=== PATIENT | female | born 1995 | race Caucasian/White ===

== ENCOUNTER 2016-07-22 17:46 | Emergency (ER) | payer OTHER ==
--- NOTE | 2016-07-22 19:20 | ER Document Report ---
ED Medical Screen (RME) - General Chief Complaint: Dizziness Stated Complaint: LIGHT HEAD FEELING Notes: 20 yo female c/o persistant dizziness, lightheadedness x 2 weeks. Seen in ED for same. Reports dizziness has gotten progessively worse since that visit. Feels slightly short of breath. Intermittant shooting pain. Hx/o costochondritis and the chest pain feels familar to that. Had recent cold, but is mostly over those symptoms. no fever. Pt is 8wks . . TRAVEL OUTSIDE OF THE [place] IN LAST 30 DAYS: No - Related Data Allergies/Adverse Reactions: No Known Allergies Allergy (Verified 07/22/16 18:39) Past Medical History - Social History Chew tobacco use (# tins/day): No Frequency of alcohol use: None Drug Abuse: None Physical Exam - Vital signs Vitals: Temp Pulse Resp BP Pulse Ox 97.9 F 76 16 145/72 H 97 07/22/16 18:43 07/22/16 18:43 07/22/16 18:43 07/22/16 18:43 07/22/16 18:43 Course - Vital Signs Vital signs: Temp Pulse Resp BP Pulse Ox 97.9 F 76 16 145/72 H 97 07/22/16 18:43 07/22/16 18:43 07/22/16 18:43 07/22/16 18:43 07/22/16 18:43
[2016-07-22 19:46] LABS: ABSOLUTE BASOPHILS # (AUTO) 0.1 10^3/uL (0.0-0.2); ABSOLUTE EOSINOPHILS # (AUTO) 0.1 10^3/uL (0.0-0.6); ABSOLUTE LYMPHOCYTES (AUTO) 2.2 10^3/uL (0.5-4.7); ABSOLUTE MONOCYTES (AUTO) 0.6 10^3/uL (0.1-1.4); ABSOLUTE NEUT (AUTO) 5.2 10^3/uL (1.7-8.2); BASOPHILS % (AUTO) 0.7 % (0-2); EOSINOPHILS % (AUTO) 1.1 % (0-6); HEMATOCRIT 40.1 % (36.0-47.0); HEMOGLOBIN 13.5 g/dL (12.0-15.5); HGB HCT DIFFERENCE 0.4; MEAN CORPUSCULAR HEMOGLOBIN 27.7 pg (27.0-33.4); MEAN CORPUSCULAR HGB CONC 33.6 g/dL (32.0-36.0); MEAN CORPUSCULAR VOLUME 82 fl (80-97); MONOCYTES % (AUTO) 7.7 % (3-13); RED BLOOD COUNT 4.87 10^6/uL (3.72-5.28); SEGMENTED NEUTROPHILS % (AUTO) 63.5 % (42-78); WHITE BLOOD COUNT 8.2 10^3/uL (4.0-10.5)
[2016-07-22 19:53] LABS: APPEARANCE,URINE CLEAR; BILIRUBIN,URINE NEGATIVE (NEGATIVE); GLUCOSE, URINE NEGATIVE (NEGATIVE); KETONES,URINE NEGATIVE (NEGATIVE); LEUKOCYTE ESTERASE,URINE NEGATIVE (NEGATIVE); NITRITE,URINE NEGATIVE (NEGATIVE); PROTEIN,URINE NEGATIVE (NEGATIVE); URINE SPECIFIC GRAVITY 1.016; UROBILINOGEN,URINE NEGATIVE mg/dL (<2.0)
[2016-07-22 20:04] LABS: ALANINE AMINOTRANSFERASE 92 U/L (5-35); ALBUMIN 4.9 g/dL (3.7-5.6); ALKALINE PHOSPHATASE 85 U/L (50-135); ANION GAP 12 (5-19); ASPARTATE AMINO TRANSFERASE 41 U/L (5-30); BILIRUBIN,TOTAL 0.5 mg/dL (0.2-1.3); BLOOD UREA NITROGEN 16 mg/dL (7-20); CALCIUM 10.2 mg/dL (8.4-10.2); CARBON DIOXIDE 28 mmol/L (22-30); CHLORIDE 101 mmol/L (98-107); CREATININE RESULT 0.62 mg/dL (0.52-1.25); GLUCOSE 83 mg/dL (75-110); POTASSIUM 4.6 mmol/L (3.6-5.0); SODIUM 141.4 mmol/L (137-145); TOTAL PROTEIN 7.9 g/dL (6.3-8.2)
--- NOTE | 2016-07-22 23:30 | ER Document Report ---
ED Dizziness/Weakness <MICHELLE VIERA - Last Filed: 07/23/16 00:24> - General Time seen by provider: 23:20 Mode of Arrival: Ambulatory Information source: Patient TRAVEL OUTSIDE OF THE [place] IN LAST 30 DAYS: No - HPI Onset: Other - see HPI Onset/Duration: Persistent Associated symptoms: Dizzy <EUNICE TRAN - Last Filed: 07/23/16 00:56> - General Chief Complaint: Dizziness Stated Complaint: LIGHT HEAD FEELING Notes: Patient is a 20 year old female presenting to the emergency department with complaints of dizziness. Patient has been having this symptom for 2 weeks now but states that the dizziness has gotten worse. Patient was seen and evaluated in the ED for this on 07/14. Patient also had shortness of breath, chest pain, and some left leg pain at this time as well. Patient states that her dizziness now is all the time whereas before it was only while she was standing. Patient states she feels like the room is moving when she is laying still. Patient had some dizziness, hypertension, and anemia while she was before. Patient also had proteinuria on 07/14 but does not have any proteinuria today. Patient states she takes iron supplements. Patient's PCP is [facility]. Patient has no known allergies. (EUNICE TRAN) - Related Data Allergies/Adverse Reactions: No Known Allergies Allergy (Verified 07/22/16 18:39) Past Medical History - General Information source: Patient - Social History Smoking Status: Never Smoker Chew tobacco use (# tins/day): No Frequency of alcohol use: None Drug Abuse: None Family History: None Patient has suicidal ideation: No Patient has homicidal ideation: No <EUNICE TRAN - Last Filed: 07/23/16 00:56> Review of Systems - Review of Systems Constitutional: No symptoms reported EENT: No symptoms reported Cardiovascular: See HPI, Dizziness Respiratory: No symptoms reported Gastrointestinal: No symptoms reported Genitourinary: No symptoms reported Female Genitourinary: No symptoms reported Musculoskeletal: No symptoms reported Skin: No symptoms reported Hematologic/Lymphatic: No symptoms reported Neurological/Psychological: No symptoms reported -: Yes All other systems reviewed and negative <EUNICE TRAN - Last Filed: 07/23/16 00:56> Physical Exam <MICHELLE VIERA - Last Filed: 07/23/16 00:24> - Vital signs Interpretation: Normal - General General appearance: Appears well, Alert In distress: None - HEENT Head: Normocephalic, Atraumatic Eyes: Normal Conjunctiva: Normal Cornea: Normal Extraocular movements intact: Yes - no nystagmus Pupils: PERRL Mucous membranes: Normal - Respiratory Respiratory status: No respiratory distress Chest status: Nontender Breath sounds: Normal Chest palpation: Normal - Cardiovascular Rhythm: Regular Heart sounds: Normal auscultation - Abdominal Inspection: Normal Distension: No distension Bowel sounds: Normal Tenderness: Nontender Organomegaly: No organomegaly - Back Back: Normal, Nontender - Extremities General upper extremity: Normal inspection, Normal ROM, Normal strength General lower extremity: Normal inspection, Normal ROM, Normal strength - Neurological Neuro grossly intact: Yes Cognition: Normal Orientation: AAOx4 [place] Coma Scale Eye Opening: Spontaneous [place] Coma Scale Verbal: Oriented [place] Coma Scale Motor: Obeys Commands [place] Coma Scale Total: 15 Speech: Normal - Psychological Associated symptoms: Normal affect, Normal mood - Skin Skin Temperature: Warm Skin Moisture: Dry <EUNICE TRAN - Last Filed: 07/23/16 00:56> - Vital signs Vitals: Temp Pulse Resp BP Pulse Ox 97.9 F 76 16 145/72 H 97 07/22/16 18:43 07/22/16 18:43 07/22/16 18:43 07/22/16 18:43 07/22/16 18:43 (MICHELLE VIERA) (EUNICE TRAN) - HEENT Notes: Patient's extraocular movements were checked initially and there was no nystagmus; patient's extraocular movements were re-checked after rapid head movements in all directions resulting with no nystagmus. (EUNICE TRAN) Course - Laboratory Result Diagrams: 07/22/16 19:25 07/22/16 19:25 - Diagnostic Test Radiology reviewed: Reports reviewed - CT scan was unremarkable <MICHELLE VIERA - Last Filed: 07/23/16 00:24> - Laboratory Result Diagrams: 07/22/16 19:25 07/22/16 19:25 <EUNICE TRAN - Last Filed: 07/23/16 00:56> - Re-evaluation Re-evalutation: 07/23/16 00:24 The patient claims to have this severe dizziness, however there is no nystagmus found on exam. Despite going through rapid head movements to provoke dizziness , there is no nystagmus and she does not comment on her dizziness being worse. ( MICHELLE VIERA) - Vital Signs Vital signs: Temp Pulse Resp BP Pulse Ox 97.8 F 80 16 119/64 99 07/23/16 00:37 07/23/16 00:37 07/22/16 18:43 07/23/16 00:37 07/23/16 00:37 (MICHELLE VIERA) (EUNICE TRAN) - Laboratory Laboratory results interpreted by me: 07/22/16 07/22/16 19:25 19:25 RDW 15.0 H AST 41 H ALT 92 H (MICHELLE VIERA) (EUNICE TRAN) Scribe Documentation - Scribe Written by Scribe:: Eunice Tran (07/23/16 23:30) acting as scribe for :: Zana <EUNICE TRAN - Last Filed: 07/23/16 00:56>
[2016-07-23 00:39] VITALS: BP 119/64
== END 2016-07-23 00:45 | disposition home or self-care (01) ==
LOC: ER 17:46
DX: R42 Dizziness and giddiness (principal); I10 Essential (primary) hypertension
CPT/HCPCS: 36415; 70450; 80053; 81001; 85025; 99284

== ENCOUNTER 2018-01-17 15:56 | Outpatient (CLI) | payer OTHER ==
[2018-01-17] MEDS ORDERED: ACETAMINOPHEN 325 MG TABLET PO PRN (16:28)
[2018-01-17] MEDS ORDERED: BUTALB/ACETAMINOPHEN/CAFFEINE 1 TAB EACH PO ONE (16:34)
[2018-01-17 16:49] LABS: AMORPHOUS SEDIMENT,URINE TRACE /HPF; APPEARANCE,URINE SLIGHTLY-CLOUDY; BILIRUBIN,URINE NEGATIVE (NEGATIVE); COLOR,URINE YELLOW; GLUCOSE, URINE NEGATIVE (NEGATIVE); KETONES,URINE NEGATIVE (NEGATIVE); LEUKOCYTE ESTERASE,URINE SMALL (NEGATIVE); NITRITE,URINE NEGATIVE (NEGATIVE); PROTEIN,URINE NEGATIVE (NEGATIVE); URINE SPECIFIC GRAVITY 1.008; UROBILINOGEN,URINE NEGATIVE mg/dL (<2.0)
[2018-01-17 17:07] LABS: ABSOLUTE EOSINOPHILS # (AUTO) 0.1 10^3/uL (0.0-0.6); ABSOLUTE LYMPHOCYTES (AUTO) 1.9 10^3/uL (0.5-4.7); ABSOLUTE MONOCYTES (AUTO) 0.9 10^3/uL (0.1-1.4); ABSOLUTE NEUT (AUTO) 6.1 10^3/uL (1.7-8.2); BASOPHILS % (AUTO) 0.5 % (0-2); EOSINOPHILS % (AUTO) 1.3 % (0-6); HEMATOCRIT 31.4 % (36.0-47.0); HEMOGLOBIN 10.7 g/dL (12.0-15.5); LYMPHOCYTES % (AUTO) 21.4 % (13-45); MEAN CORPUSCULAR HEMOGLOBIN 28.5 pg (27.0-33.4); MEAN CORPUSCULAR HGB CONC 33.9 g/dL (32.0-36.0); MEAN CORPUSCULAR VOLUME 84 fl (80-97); MONOCYTES % (AUTO) 10.4 % (3-13); PLATELET COUNT 314 10^3/uL (150-450); RED BLOOD COUNT 3.74 10^6/uL (3.72-5.28); RED CELL DISTRIBUTION WIDTH 15.5 % (11.5-14.0); SEGMENTED NEUTROPHILS % (AUTO) 66.4 % (42-78); TOTAL CELLS COUNTED % (AUTO) 100 %; WHITE BLOOD COUNT 9.1 10^3/uL (4.0-10.5)
[2018-01-17 17:07] LABS: URINE AMPHETAMINES SCREEN NEGATIVE; URINE BARBITURATES SCREEN NEGATIVE; URINE BENZODIAZEPINES SCREEN NEGATIVE; URINE COCAINE SCREEN NEGATIVE; URINE MARIJUANA (THC) SCREEN NEGATIVE; URINE METHADONE SCREEN NEGATIVE; URINE PHENCYCLIDINE SCREEN NEGATIVE
[2018-01-17 17:12] LABS: UR PRO/CREAT RATIO RESULT 0.3 mg/mg (0.0-0.2); URINE CREATININE 46.2 mg/dL (16-327); URINE PROTEIN 15.8 mg/dL (<12)
[2018-01-17 17:21] LABS: ALANINE AMINOTRANSFERASE 18 U/L (9-52); ALBUMIN 3.6 g/dL (3.5-5.0); ALKALINE PHOSPHATASE 92 U/L (38-126); ANION GAP 11 (5-19); ASPARTATE AMINO TRANSFERASE 12 U/L (14-36); BILIRUBIN,DIRECT 0.3 mg/dL (0.0-0.4); BILIRUBIN,TOTAL 0.3 mg/dL (0.2-1.3); BLOOD UREA NITROGEN 5 mg/dL (7-20); CALCIUM 9.2 mg/dL (8.4-10.2); CARBON DIOXIDE 22 mmol/L (22-30); CHLORIDE 107 mmol/L (98-107); GLUCOSE 70 mg/dL (75-110); LDH 378 U/L (313-618); POTASSIUM 4.1 mmol/L (3.6-5.0); TOTAL PROTEIN 6.6 g/dL (6.3-8.2); URIC ACID 3.2 mg/dL (2.5-6.2)
--- NOTE | 2018-01-17 18:16 | Non Stress Test Report ---
Non Stress Test Datetime Report Generated by CPN: 01/17/2018 18:16 DEMOGRAPHIC EGA NST: 33.2 INDICATION Indication for Study: Ordered by Provider MONITORING Monitor Explained: Monitor Explained; Test Explained; Patient Verbalized Understanding Monitor Explained Other: see flowsheet for vital signs Time on Monitor: 01/17/2018 16:49 Time off Monitor: 01/17/2018 17:51 NST Duration: 62 NST INTERVENTIONS NST Interventions: Reposition Patient Physician Notified NST: CFany Dai, CNM BABY A: [id number] BABY A Movement : Present Contraction Frequency : none FHR Baseline : 135 Accelerations : 15X15 Decelerations : None Variability : Moderate 6-25bpm NST Review: Meets Criteria for Reactive NST NST Review and Verified By : ADELITA Del Toro Results: Reactive NST COMMENTS NST Comments: strip reviewed by CNM NST REPORT Report Trigger: Send Report
== END 2018-01-17 18:05 | disposition home or self-care (01) ==
LOC: LC 15:56
PROVIDERS: ATTEND Student in an Organized Health Care Education/Training Program
PROC: 4A1HXCZ Monitoring of Products of Conception, Cardiac Rate, External Approach (ICD-10-PCS; principal; 2018-01-17)
DX: O26.893 Other specified pregnancy related conditions, third trimester (principal); R51 Headache; Z3A.33 33 weeks gestation of pregnancy
CPT/HCPCS: 36415; 59025; 80053; 80307; 81001; 82570; 83615; 84156; 84550; 85025

== ENCOUNTER → 2018-01-21 | Outpatient (CLI) | payer OTHER ==
[2018-01-21 17:42] LABS: URINE PROTEIN 8.3 mg/dL (<12)
[2018-01-21 17:46] LABS: 24 HOUR URINE PROTEIN RESULT 123 mg/day (42-225)
== END ==
LOC: OD 16:05
PROVIDERS: ATTEND Midwife
DX: O13.9 Gestational [pregnancy-induced] hypertension without significant proteinuria, unspecified trimester (principal); Z13.29 Encounter for screening for other suspected endocrine disorder
CPT/HCPCS: 36415; 84156; 84443

== ENCOUNTER 2018-03-05 04:46 | Inpatient (IN) | payer OTHER ==
[2018-03-05] MEDS ORDERED: MISOPROSTOL 0.2 MG TABLET ONE (05:51)
[2018-03-05] MEDS ORDERED: OXYTOCIN/NORMAL SALINE 20 UNIT/1,000 ML RTUINJ ONE (05:51)
[2018-03-05] MEDS ORDERED: LIDOCAINE 1% INJ-PF (10 MG/ML) 30 ML SDV ONE (05:51)
[2018-03-05 06:28] LABS: APPEARANCE,URINE SLIGHTLY-CLOUDY; BILIRUBIN,URINE NEGATIVE (NEGATIVE); COLOR,URINE YELLOW; GLUCOSE, URINE NEGATIVE (NEGATIVE); KETONES,URINE 20 mg/dL (NEGATIVE); LEUKOCYTE ESTERASE,URINE NEGATIVE (NEGATIVE); NITRITE,URINE NEGATIVE (NEGATIVE); PROTEIN,URINE 30 mg/dL (NEGATIVE); URINE SPECIFIC GRAVITY 1.023; UROBILINOGEN,URINE NEGATIVE mg/dL (<2.0)
--- NOTE | 2018-03-05 06:47 | Admission Physical ---
Datetime Report Generated by CPN: 03/05/2018 06:47 CURRENT ADMISSION Chief Complaint: Uterine Contractions Indication for Induction: Not Applicable Admit Impression : Term, Intrauterine ; Active Labor Admit Plan: Admit to Unit; Initiate Labor Protocol ALLERGIES Medication Allergies: No Medication Allergies: No Known Allergies (01/17/2018) Latex: No Latex Allergies OBSTETRICAL HISTORY EDC: 03/05/2018 00:00 : 2 Para: 1 Term: 1 : 0 SAB: 0 IAB: 0 Livin Gestational Diabetes: No Rh Sensitization: No Incompetent Cervix: No MARBIN: No Infertility: No ART Treatment: No Uterine Anomaly: No IUGR: No Hx Previous C/S: No Macrosomia: No Hx Loss/Stillborn: No PIH: No Hx : No Placenta Previa/Abruption: No Depression/PP Depression: No PTL/PROM: No Post Hemorrhage: No Current Procedures: Ultrasound; NST Obstetrical History Comments: G1: 39 weeks pre-e G2:current SEE RECORDS Alcohol: No Marijuana : No Cocaine: No Other Illicit Drugs: No Cigarettes: Never Smoker. [id number] MEDICAL HISTORY Diabetes: No Blood Transfusion: No Pulmonary Disease (Asthma, TB): No Breast Disease: No Hypertension: No Advanced Manufacturing Associate Surgery: No Heart Disease: No Hosp/Surgery: Yes Autoimmune Disorder: No Anesthetic Complications: Yes Kidney Disease: No Abnormal Pap Smear: No Neuro/Epilepsy: No Psychiatric Disorders: No Other Medical Diseases: No Hepatitis/Liver Disease: No Significant Family History: No Varicosities/Phlebitis: No Trauma/Violence : No Thyroid Dysfunction: No Medical History Comments: epidural MEI after 1st delivery with blood patch INFECTIOUS HISTORY Gonorrhea: No Genital Herpes: No Chlamydia: No Tuberculosis: No Syphilis: No Hepatitis: No HIV/AIDS Exposure: No Rash or Viral Illness: No HPV: No PHYSICAL EXAM General: Normal HEENT: Normal Neurologic: Normal Thyroid: Normal Heart: Normal Lungs: Normal Breast: Normal Back: Normal Abdomen: Normal Genitourinary Exam: Normal Extremities: Normal DTRs: Normal Pelvic Type: Adequate Vital Signs: Reviewed VAGINAL EXAM Dilatation: 5 Effacement: 50 Station: -2 MEMBRANES Pooling: Negative Membranes: Intact FETUS A EGA: 40.0 Monitoring: External US FHR- Baseline: 140 Variability: Moderate 6-25bpm Accelerations: 15X15 Decelerations: None FHR Category: Category I Estimated Weight (gm): 3600 Presentation: Vertex PLANS FOR LABOR AND DELIVERY Labor and Delivery: None Pain Management: None Feeding Preference: Breast Benefit of Breast Feed Discussed: Yes Circumcision: No INFORMED CONSENT Signature: with User ID: [email or web address]
[2018-03-05 06:49] LABS: URINE AMPHETAMINES SCREEN NEGATIVE; URINE BARBITURATES SCREEN NEGATIVE; URINE BENZODIAZEPINES SCREEN NEGATIVE; URINE COCAINE SCREEN NEGATIVE; URINE MARIJUANA (THC) SCREEN NEGATIVE; URINE METHADONE SCREEN NEGATIVE; URINE PHENCYCLIDINE SCREEN NEGATIVE
[2018-03-05 06:50] LABS: ABSOLUTE LYMPHOCYTES (AUTO) 1.3 10^3/uL (0.5-4.7); ABSOLUTE MONOCYTES (AUTO) 0.8 10^3/uL (0.1-1.4); ABSOLUTE NEUT (AUTO) 10.9 10^3/uL (1.7-8.2); BASOPHILS % (AUTO) 0.3 % (0-2); EOSINOPHILS % (AUTO) 0.2 % (0-6); HEMATOCRIT 33.2 % (36.0-47.0); HEMOGLOBIN 11.1 g/dL (12.0-15.5); LYMPHOCYTES % (AUTO) 9.7 % (13-45); MEAN CORPUSCULAR HEMOGLOBIN 27.6 pg (27.0-33.4); MEAN CORPUSCULAR HGB CONC 33.4 g/dL (32.0-36.0); MEAN CORPUSCULAR VOLUME 83 fl (80-97); MONOCYTES % (AUTO) 6.1 % (3-13); PLATELET COUNT 236 10^3/uL (150-450); RED BLOOD COUNT 4.02 10^6/uL (3.72-5.28); RED CELL DISTRIBUTION WIDTH 17.5 % (11.5-14.0); SEGMENTED NEUTROPHILS % (AUTO) 83.7 % (42-78); TOTAL CELLS COUNTED % (AUTO) 100 %; WHITE BLOOD COUNT 13.1 10^3/uL (4.0-10.5)
[2018-03-05] MEDS ORDERED: DIBUCAINE 1% OINTMENT 28 GM TP PRN (11:56)
[2018-03-05] MEDS ORDERED: ZOLPIDEM TARTRATE 5 MG TABLET PO PRN (11:56)
[2018-03-05] MEDS ORDERED: ACETAMINOPHEN WITH CODEINE #3 TABLET PO PRN ×2 (11:56)
[2018-03-05] MEDS ORDERED: MEASLES,MUMPS&RUBELLA VACC/PF 0.5 ML VIAL SUBCUT PRN (11:56)
[2018-03-05] MEDS ORDERED: DIPH/PERTUSS(ACELL)/TETANUS VAC/PF 0.5 ML SYR (>=10YO) IM PRN (11:56)
[2018-03-05] MEDS ORDERED: OXYTOCIN/NORMAL SALINE 20 UNIT/1,000 ML RTUINJ IV PRN (11:56)
[2018-03-05] MEDS ORDERED: BENZOCAINE/MENTHOL AEROSOL SPRAY 56 ML TOP PRN (11:56)
[2018-03-05] MEDS ORDERED: IBUPROFEN 800 MG TABLET ONE (11:57)
[2018-03-05] MEDS ORDERED: BENZOCAINE/MENTHOL AEROSOL SPRAY 56 ML ONE (12:58)
[2018-03-05] MEDS: IBUPROFEN 800 MG TABLET PO SCH ×2 (15:24→21:06)
--- NOTE | 2018-03-05 15:34 | Delivery Summary ---
Del Sum A-C Datetime Report Generated by CPN: 03/05/2018 15:33 DELIVERY PERSONNEL DELIVERY PERSONNEL: [id number] Delivery Doctor:: Dr. Sam MD Labor and Delivery Nurse:: Mable Ness RNfoundry manager Nurse:: Afia Warren RN Nursery Nurse:: Nora Marin RN Nursery Nurse:: Lisa Larose RN Tree Expert/RETAIL BUSINESS DEVELOPMENT MANAGER: Gwen Nieto, ST Tree Expert/RETAIL BUSINESS DEVELOPMENT MANAGER: Sherlyn White, ST MATERNAL INFORMATION Delivery Anesthesia: None (Annotations: Data stored by [facility] on behalf of user) Medications After Delivery: Pitocin Drip 20 Units/1000ml NSS Estimated Blood Loss (ml): 300 Maternal Complications: None Provider Comments: Normal spontaneous vaginal delivery of a female , weight and Apgars pending overan intact perineum. Placenta delivered spontaneous intact via a 3 vessel cord. Patient tolerated well. LABOR SUMMARY EDC: 03/05/2018 00:00 No. Babies in Womb: 1 Attempted: No Labor Anesthesia: None LABOR INFORMATION Reason for Induction: Not Applicable Onset of Labor: 03/04/2018 21:00 Complete Dilatation: 03/05/2018 09:49 Oxytocin: N/A Group B Beta Strep: negative Antibiotics # of Doses: None Steroids Given: None Reason Steroids Not Administered: Not Applicable MEMBRANES Membranes Rupture Method: Spontaneous Rupture of Membranes: 03/05/2018 11:23 Length of Rupture (hr): 0.07 Amniotic Fluid Color: Clear Amniotic Fluid Amount: Moderate Amniotic Fluid Odor: Normal STAGES OF LABOR Stage 1 hr: 12 Stage 1 min: 49 Stage 2 hr: 1 Stage 2 min: 38 Stage 3 hr: 0 Stage 3 min: 5 Total Time in Labor hr: 14 Total Time in Labor min: 32 VAGINAL DELIVERY Episiotomy: None Laceration #1: None Laceration Extension #1: N/A Laceration Repair: Not Applicable Sponge Count Correct: Yes; Vaginal Sweep Performed Sharps Count Correct: Yes CSECTION DELIVERY Primary Indication: N/A Secondary Indication: N/A CSection Incidence: N/A Labor: N/A Elective: N/A CSection Incision: N/A BABY A INFORMATION Infant Delivery Date/Time: 03/05/2018 11:27 Method of Delivery: Vaginal Born in Route : No : N/A Forceps: N/A Vacuum Extraction: N/A Shoulder Dystocia : No PRESENTATION/POSITION BABY A Presentation: Cephalic Cephalic Presentation: Vertex Vertex Position: Left Occipital Posterior Breech Presentation: N/A PLACENTA INFORMATION BABY A Placenta Delivery Time : 03/05/2018 11:32 Placenta Method of Delivery: Spontaneous Placenta Status: Delivered SCORES BABY A Heart Rate 1 min: >100 bpm Resp Effort 1 min: Good Cry Reflex Irritability 1 min: Cough or Sneeze or Pulls Away Muscle Tone 1 min: Active Motion Color 1 min: Blue/Pale Resuscitation Effort 1 min: N/A SCORE 1 MIN: 8 Heart Rate 5 min: >100 bpm Resp Effort 5 min: Good Cry Reflex Irritability 5 min: Cough or Sneeze or Pulls Away Muscle Tone 5 min: Active Motion Color 5 min: Body [place], Extremities Blue Resuscitation Effort 5 min: N/A SCORE 5 MIN: 9 INFORMATION BABY A Gestational Age at Delivery: 40.0 Gestational Status: Full Term- 39- 40.6 Weeks Outcome : Liveborn Infant Condition : Stable Sex: Female IDENTIFICATION BABY A Infant Verification Date/Time: 03/05/2018 12:11 ID Band Number: [id number] Mother's Name Verified: Yes RN Verifying : B Baidy, RN CORD INFORMATION BABY A No. Cord Vessels: 3 Nuchal Cord : N/A Cord Blood Taken: No-Annotate Suction: None ASSESSMENT BABY A Infant Complications: None Physical Findings at Delivery: Within Normal Limits Respirations: Appears Normal Skin to Skin: Yes Cement Side Laster/ALS Called : No Infant Care By: Lisa Larose RN Transferred To: Remains with Mother BABY B INFORMATION : N/A SIGNATURES Signature: with User ID: [email or web address] : I was personally available for consultation and serving as supervising physician for the MLP. : I personally evaluated and examined the patient in conjunction with the MLP and agree with the assessment, treatment plan and disposition.
[2018-03-05] MEDS: FERROUS SULFATE 325 MG TABLET PO SCH (18:28)
[2018-03-05] MEDS: DOCUSATE SODIUM 100 MG CAPSULE PO SCH (18:28)
[2018-03-06] MEDS: IBUPROFEN 800 MG TABLET PO SCH ×2 (05:53→14:49)
[2018-03-06 08:05] LABS: HEMATOCRIT 31.5 % (36.0-47.0); HEMOGLOBIN 10.5 g/dL (12.0-15.5); MEAN CORPUSCULAR HGB CONC 33.3 g/dL (32.0-36.0); MEAN CORPUSCULAR VOLUME 84 fl (80-97); PLATELET COUNT 225 10^3/uL (150-450); RED BLOOD COUNT 3.74 10^6/uL (3.72-5.28); RED CELL DISTRIBUTION WIDTH 17.3 % (11.5-14.0); WHITE BLOOD COUNT 8.7 10^3/uL (4.0-10.5)
--- NOTE | 2018-03-06 09:38 | PDOC PROGRESS REPORT ---
Subjective-OB Progress Note for:: 03/06/18 Subjective: PP Day #1, desires to go home today, doing well, no issues. O+ Rubella immune, Physical Exam (OB) Vital Signs: Temp Pulse Resp BP Pulse Ox 98.1 F 95 16 126/55 H 100 03/06/18 08:34 03/06/18 08:34 03/06/18 08:34 03/06/18 08:34 03/06/18 08:34 Intake & Output 03/05/18 03/06/18 03/07/18 06:59 06:59 06:59 Weight 91.172 kg - General General Appearance: Appears well - Lochia Lochia Amount: Small 10-25 ml Lochia Color: Rubra/Red - Abdomen Description: Soft, Round Hernia Present: No Fundal Description: Firm, Midline Fundal Height: u/u - u/2 - Respiratory Respiratory Status: No respiratory distress - Genitourinary Genitourinary Note: voiding - Extremities Upper extremity: Normal inspection Lower extremities: Normal inspection - Neurological Cognition: Normal Orientation: AAOx4 - Psychological Associated symptoms: Normal affect, Normal mood Objective-Diagnostic Laboratory: 03/06/18 07:48 03/06/18 07:48 WBC 8.7 RBC 3.74 Hgb 10.5 L Hct 31.5 L MCV 84 MCH 28.0 MCHC 33.3 RDW 17.3 H Plt Count 225 Assessment and Plan(PN) - Assessment and Plan (1) Vaginal delivery Is this a current diagnosis for this admission?: Yes - Time Spent with Patient Time with patient: Less than 15 minutes Medications reviewed and adjusted accordingly: Yes - Disposition Anticipated Discharge: Home
--- NOTE | 2018-03-06 09:42 | PDOC DISCHARGE SUMMARY ---
Final Diagnosis Discharge Date: 03/06/18 - Final Diagnosis (1) Vaginal delivery Is this a current diagnosis for this admission?: Yes Discharge Data - Discharge Medication Prescriptions: Ibuprofen [Motrin 800 mg Tablet] 800 mg PO Q8 #30 tablet Home Medications: Vit/Iron Fum/Folic AC [ Tablet] 1 tab PO DAILY 03/19/16 Ibuprofen [Motrin 800 mg Tablet] 800 mg PO Q8 #30 tablet 03/06/18 Reason(s) for Admission: Onset of Labor Procedures: Ultrasound Intrapartum Procedure(s): Spontaneous Vaginal Delivery - Diagnosis Test Laboratory: Temp Pulse Resp BP Pulse Ox 98.1 F 95 16 126/55 H 100 03/06/18 08:34 03/06/18 08:34 03/06/18 08:34 03/06/18 08:34 03/06/18 08:34 03/05/18 03/05/18 03/06/18 05:04 06:36 07:48 RBC 4.02 3.74 Hgb 11.1 L 10.5 L Hct 33.2 L 31.5 L Urine Opiates Screen NEGATIVE - Discharge information/Instructions Discharge Activity: Activity As Tolerated, No Lifting Over 10 Pounds, Pelvic Rest Discharge Diet: As Tolerated Disposition: HOME, SELF-CARE Follow up with: [facility] in: 3, Weeks
[2018-03-06] MEDS ORDERED: PRENATAL VITAMIN W DHA CAPSULE PO SCH (10:00)
[2018-03-06] MEDS ORDERED: SENNOSIDES/DOCUSATE 8.6-50 MG 1 EACH TABLET PO SCH (10:00)
[2018-03-06] MEDS: FERROUS SULFATE 325 MG TABLET PO SCH ×2 (10:31→18:02)
[2018-03-06] MEDS: DOCUSATE SODIUM 100 MG CAPSULE PO SCH ×2 (10:31→18:02)
[2018-03-06 21:44] VITALS: BP 136/64
== END 2018-03-06 22:55 | disposition home or self-care (01) | DRG 775 ==
LOC: LC 04:46 → LR 05:23 → 2S 14:47
PROVIDERS: ADMIT Obstetrics & Gynecology; ATTEND Obstetrics & Gynecology
PROC: 10E0XZZ Delivery of Products of Conception, External Approach (ICD-10-PCS; principal; 2018-03-05)
PROC: 4A1HXCZ Monitoring of Products of Conception, Cardiac Rate, External Approach (ICD-10-PCS; 2018-03-05)
DX: O80 Encounter for full-term uncomplicated delivery (principal); Z3A.40 40 weeks gestation of pregnancy; Z37.0 Single live birth
CPT/HCPCS: 36415; 80307; 81005; 85025; 85027; 86592; 86850; 86900; 86901; J2590; J3490